=== PATIENT | male | born 1955 ===

== ENCOUNTER 2017-05-02 19:53 | Emergency (ER) | payer OTHER, BC ==
[2017-05-02 19:57] VITALS: BP 148/88; PULSE 68; RESP 17; TEMP 98.3; O2SAT 99
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
== END 2017-05-02 22:20 | disposition home or self-care (01) ==
LOC: H.ER 19:53
DX: S09.90XA Unspecified injury of head, initial encounter (principal); S16.1XXA Strain of muscle, fascia and tendon at neck level, initial encounter; S39.012A Strain of muscle, fascia and tendon of lower back, initial encounter; V43.52XA Car driver injured in collision with other type car in traffic accident, initial encounter; Y92.410 Unspecified street and highway as the place of occurrence of the external cause; E78.00 Pure hypercholesterolemia, unspecified; Z87.891 Personal history of nicotine dependence